=== PATIENT | female | born 1985 ===

== ENCOUNTER 2022-11-24 15:11 | Outpatient (REF) | payer OTHER, SELFPAY ==
[2022-11-25 05:37] LABS: CT PCR NOT DETECTED (Not Detect.); NG PCR NOT DETECTED (Not Detect.)
[2022-11-25 13:56] LABS: BV Int Neg Control Negative (Negative); BV Int Pos Control Positive (Positive)
== END 2022-11-24 15:12 | disposition home or self-care (01) ==
LOC: HO.LNP 15:11
PROVIDERS: PCP Internal Medicine; Visit Provider Advanced Practice Midwife
DX: Z01.419 Encounter for gynecological examination (general) (routine) without abnormal findings (principal); Z97.5 Presence of (intrauterine) contraceptive device; Z20.2 Contact with and (suspected) exposure to infections with a predominantly sexual mode of transmission
CPT/HCPCS: 0353U; 87480; 87510; 87660

== ENCOUNTER 2023-01-04 15:10 | Outpatient (AMB) | payer OTHER, SELFPAY ==
[2023-01-04 15:12] VITALS: BP 104/76; BMI 33.3
--- NOTE | 2023-01-04 15:12 | A.OFFVIS_ITS ---
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 Patient had ParaGard IUD 9 half years ago will be due for another in 06/29. Patient is being satisfied with the ParaGard IUD was no complaints [facility] Surgical History (Updated 01/04/23 @ 15:46 by Dmitriy Fischer MD) H/O abdominoplasty Social History Alcohol intake: current Alcohol intake frequency: holidays/special occasions only Female Reproductive History Menstrual Age of Menarche: 14 Date of last menstrual period: 12/28/22 control method: copper IUCD Date of last pap smear: 10/18/18 (negative) Review of Systems Const All systems reviewed & are unremarkable except as noted in HPI and below Reports as per HPI and Reports no additional complaints GI Reports no additional complaints Reports no additional complaints Physical Exam Vital Signs: Last Vital Signs BP 104/76 01/04/23 15:12 BMI result Body Mass Index 33.3 Assessment & Plan Assessment & Plan (1) Sterilization consult: Code(s): Z30.09 - Encounter for other general counseling and advice on contraception Plan: Discussed with the patient the different options of control including control pills/Nuvaring, DMPA, different types of IUD ?s, sterilization. All the pros, cons, risks and benefits of each were discussed with the patient. The patient decided to think about it and get back to us and would like to seek a 2nd opinion in another OBGYN practice for sterilization consult. Patient was given the phone numbers of multiple OBGYN practice at the [facility] to schedule a 2nd opinion. All questions answered, the patient verbalized understanding Coding Level of Care Code Est Pt Level 3 (57862) Diagnoses Sterilization consult Z30.09
== END 2023-01-04 15:59 | disposition home or self-care (01) ==
LOC: HO.HWS 15:10
PROVIDERS: PCP Internal Medicine; Visit Provider Obstetrics & Gynecology
DX: Z30.09 Encounter for other general counseling and advice on contraception (principal)
CPT/HCPCS: 99213

== ENCOUNTER → 2023-01-04 15:10 | Outpatient (BNVA) | payer OTHER, SELFPAY | PROVIDERS: PCP Internal Medicine; Visit Provider Obstetrics & Gynecology ==

== ENCOUNTER 2023-11-30 09:29 | Outpatient (REF) | payer OTHER, SELFPAY ==
[2023-12-01 06:07] LABS: CT PCR NOT DETECTED (Not Detect.); NG PCR NOT DETECTED (Not Detect.)
[2023-12-01 11:06] LABS: Bacterial Vaginosis PCR POSITIVE (Negative); Candida Group PCR NOT DETECTED (Not Detect); Candida glab krusei PCR NOT DETECTED (Not Detect); Trichomonas vaginalis PCR NOT DETECTED (Not Detect)
[2023-12-05 18:09] LABS: HPV mRNA E6/E7 Not Detected (Not Detected)
== END 2023-11-30 09:30 | disposition home or self-care (01) ==
LOC: HO.LAB 09:29
PROVIDERS: PCP Internal Medicine; Visit Provider Advanced Practice Midwife
DX: Z01.419 Encounter for gynecological examination (general) (routine) without abnormal findings (principal); Z11.51 Encounter for screening for human papillomavirus (HPV); N89.8 Other specified noninflammatory disorders of vagina
CPT/HCPCS: 0352U; 36415; 87491; 87591; 87624; 88175

== ENCOUNTER 2023-11-30 09:29 | Outpatient (AMB) | payer OTHER, SELFPAY ==
[2023-11-30 09:35] VITALS: BP 116/68; BMI 34.4
--- NOTE | 2023-11-30 09:35 | A.OFFVIS_ITS ---
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 Tender Required: No Plasterer Tender Services: Plasterer Tender Present Information Interpreted: clinical only Design Technician: Design Technician Present Allergies No Known Allergies Allergy (Verified 11/30/23 09:38) Medication List - Last Reconciled 11/30/23 by Patti Keller CNM copper (ParaGard T 380A) intrauterine Is last menstrual period known: Yes Last menstrual period: 11/08/23 Do you need a note to return to daycare/school/sports/work: No HPI HPI CALL CENTER SUPPORT CONSULTANT annual exam: Details: 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 Fischer and was going to go for 2nd opinion to [facility] and she never did. At this point she thinks she will just replace the ParaGard IUD as it has she has been being extra careful just in case but I did share with her that it is still works even though it may have . It has not giving her any trouble at all she gets monthly periods they come more like every 5 weeks but she does not exactly keep track other than 1 month it will be the 1st week of the month 2nd month it will be the 2nd week 3rd month will be the 3rd week 4th month 4th week and so on. They last only about 3 days. She has not having any other health problems she has not seen her primary care provider in a while she will be scheduling an appointment she turns 39 in February. 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 [facility] Surgical History H/O abdominoplasty Social History Alcohol intake: current Alcohol intake frequency: holidays/special occasions only Female Reproductive History Menstrual Age of Menarche: 14 Duration of menses: 3-5 days Date of last menstrual period: 11/08/23 control method: copper IUCD Total pregnancies: 3 Full term: 3 Date of last pap smear: 10/18/18 (negative) History of abnormal pap smear: No Physical Exam Vital Signs: Last Vital Signs BP 116/68 11/30/23 09:35 BMI result Body Mass Index 34.4 Const General: healthy appearing, comfortable, no acute distress, well developed and alert Nutritional Appearance: average body habitus Orientation/consciousness: patient oriented x3 Limitations: no limitations HEENT Head: Yes normocephalic Neck Neck: Yes normal visual inspection Chest Chest palpation & inspection: normal inspection of the chest Breast/axilla inspection: normal inspection of the breasts and normal inspection of the axillae Breast/axilla palpation: normal palpation of the breasts and normal palpation of the axillae Resp Effort & Inspection: normal respiratory effort GI Inspection: Yes normal to inspection, No Abdominal wall edema and No distended Palpation (GI): Soft to palpation and nontender Other: External exam within normal limits vagina is pink and moist with very healthy- appearing clear to white mucus cervix appears almost nulliparous pink and smooth with ParaGard string visible very good muscle tone cervix long close thick mobile nontender uterus slightly difficult feel secondary to adipose adnexa nontender not enlarged. General: Yes bladder normal to palpation External Female Exam: normal external appearance and normal appearance of the urethra Speculum Exam - Vagina: normal appearance of the vagina, normal palpation and normal vaginal discharge Speculum Exam - Cervix: normal appearance of the cervix, normal palpation and nontender Bimanual exam- vagina & uterus: normal bimanual exam, normal palpation, uterine size normal, bladder normal to palpation, consistency normal, normal palpation, uterine mobility normal, uterine shape normal, No Cervical tenderness present, non-tender and no cervical motion tenderness Bimanual Exam- Adnexa, other: normal adnexae, no masses, normal and No adnexal tenderness Neuro General: patient oriented x3 Assessment & Plan Assessment & Plan (1) Encounter for routine checking of intrauterine contraceptive device (IUD): Code(s): Z30.431 - Encounter for routine checking of intrauterine contraceptive device Category: Medical (2) Cervical cancer screening: Comment: No history of abnormals; last Pap done October of 2018= neg; next Pap due October of 2023. Code(s): Z12.4 - Encounter for screening for malignant neoplasm of cervix Category: Medical (3) Well woman exam with routine gynecological exam: Code(s): Z01.419 - Encounter for gynecological examination (general) (routine) without abnormal findings Category: Medical (4) control counseling: Comment: Patient has ParaGard that was due for replacement. She had consultations and discussions about sterilization as alternative in 2022. Code(s): Z30.09 - Encounter for other general counseling and advice on contraception Category: Medical (5) Breast cancer screening: Code(s): Z12.39 - Encounter for other screening for malignant neoplasm of breast Category: Medical Plan -----Discussed in this visit the following: healthy balanced diet, regular and consistent exercise, getting recommended health screens, doing the best she can for her particular health concerns, kegel exercises, pap smear screening and followup recommendations, mammography screening and SBE, normal changes in cycles in her life stage--- . Mammogram is being ordered for when she turns 39.. She signed consent for a ParaGard last year in November it is unknown whether not that was ever received and is in the pharmacy at the hospital or not. Patient will sign another form today so it can be ordered if it is not the I did tell her that we would want to replace the IUD when she has her. One of the heaviest days so I asked her to start keeping track so she can plan. Orders: Orders MM tomosynthesis screening BI 3 Months Z01.419 - Encounter for gynecological examination (general) (routine) without abnormal findings, Z12.31 - Encounter for screening mammogram for malignant neoplasm of breast, Z12.39 - Encounter for other screening for malignant neoplasm of breast, Z12.4 - Encounter for screening for malignant neoplasm of cervix, Z30.09 - Encounter for other general counseling and advice on contraception, Z30.431 - Encounter for routine checking of intrauterine contraceptive device Coding Level of Care Code Est Pt Prev Care 18-39y(98547) Diagnoses Encounter for routine checking of intrauterine contraceptive device (IUD) Z30.431 Cervical cancer screening Z12.4 Well woman exam with routine gynecological exam Z01.419 control counseling Z30.09 Breast cancer screening Z12.39
== END 2023-11-30 10:43 | disposition home or self-care (01) ==
LOC: HO.HWSM 09:29
PROVIDERS: PCP Internal Medicine; Visit Provider Advanced Practice Midwife
DX: Z30.431 Encounter for routine checking of intrauterine contraceptive device (principal); Z12.4 Encounter for screening for malignant neoplasm of cervix; Z01.419 Encounter for gynecological examination (general) (routine) without abnormal findings; Z30.09 Encounter for other general counseling and advice on contraception; Z12.39 Encounter for other screening for malignant neoplasm of breast
CPT/HCPCS: 99395

== ENCOUNTER 2024-02-17 20:38 | Emergency (ER) | payer OTHER, SELFPAY ==
[2024-02-17 21:03] VITALS: BP 128/92; PULSE 79; RESP 18; TEMP 36.7; O2SAT 99; BMI 33.9
[2024-02-18 01:54] VITALS: BP 133/85; PULSE 69; RESP 18; TEMP 36.6; O2SAT 99
--- NOTE | 2024-02-18 04:52 | ED_ITS ---
HPI - General Adult General Chief complaint: General Medical Stated complaint: chemical exposure at work, headache Time Seen by Provider: 02/18/24 04:46 Source: patient Mode of arrival: ambulatory Limitations: no limitations History of Present Illness ED Provider: Dr. Erika Guzman HPI narrative: Patient comes to the emergency room complaining of headache. Patient states that earlier today approximately 14 hours ago, patient was exposed to Freon on an air conditioning. Patient states that after she started having headache, she did not take any medications because she did not know she was supposed to. Patient denies any skin irritation, no inhalation injury. No shortness of breath or chest pain. No eye irritation. Related Data Home Medications ?Medication ?Instructions ?Recorded ?Confirmed copper 380 square mm intrauterine intrauterine 11/24/22 11/30/23 device (ParaGard T 380A) Allergies Allergy/AdvReac Type Severity Reaction Status Date / Time No Known Allergies Allergy Verified 02/17/24 21:05 Review of Systems Review of Systems: Constitutional : No Weight loss, No Fever, No Chills, No Night Sweats, No Fatigue, No Malaise ENT/Mouth : No Hearing loss, No Ear Pain, No Nasal Congestion, No Sinus Pain, No Hoarseness, No sore throat, No Rhinorrhea, No Swallowing Difficulty Eyes: No Eye Pain, No Swelling, No Redness, No Foreign Body, No Discharge, No Vision Changes Cardiovascular : No Chest Pain, No SOB, No Dyspnea on Exertion, No Orthopnea, No Edema, No Palpitations Respiratory : No Cough, No Sputum, No Wheezing, No Smoke Exposure, No Dyspnea Gastrointestinal : No Nausea, No Vomiting, No Diarrhea, No Constipation, No abdominal Pain, No Hematochezia, No Melena Genitourinary : no irregular bleeding, No Dysuria, No Urinary Frequency, No Hematuria, No Urinary Incontinence, No Urgency, No Flank Pain, No Urinary Flow Changes, No Hesitancy Musculoskeletal : No joint pain, No Myalgias, No Joint Swelling Skin : No Skin Lesions, No rash Neuro : No Weakness, No Numbness, No Paresthesias, No Loss of Consciousness, No Dizziness, complaining of mild Headache Psych : No Anxiety/Panic, No Depression, No SI/HI/AH/VH, No Social Issues, Heme/Lymph: No Bruising, No Bleeding,No Lymphadenopathy Endocrine : No Polyuria, No Polydipsia, No Temperature Intolerance PMFSH Past Medical History Surgical History H/O abdominoplasty Social History Social History Alcohol intake: current Alcohol intake frequency: holidays/special occasions only Advance Directives: No Advance Directives Information Provided: Yes Physical Exam ED Vital Signs: Vital Signs - 24 hr 02/17/24 21:03 02/18/24 01:54 Temperature 98.1 F 97.9 F Pulse Rate 79 69 Respiratory Rate 18 18 Blood Pressure 128/92 H 133/85 Pulse Oximetry 99 99 Oxygen Delivery Method Room Air Room Air BMI result Body Mass Index 33.9 Const Other: Appearance: Alert. Oriented X3. No acute distress. Eyes: Pupils equal, round and reactive to light. ENT: Pharynx normal. Neck: Normal inspection. Neck supple. No lymph nodes noted. No crepitus CVS: Normal heart rate and rhythm. Pulses normal. Normal S1 and S2 Respiratory: No respiratory distress. Breath sounds normal. No Wheezing. No rales Abdomen: Soft and nontender. No rigidity. No distention. Skin: Skin warm and dry. Normal skin color. Normal skin turgor. Extremities: No lower extremity edema. No Lacerations. No Rash Neuro: Oriented X 3. No motor deficit. No sensory deficit. Moving all extremities. No slurred speech. CN 2 through 12 grossly intact Psych: calm, cooperative, normal affect Medical Decision Making Medical Decision Making MDM Narrative: Patient was given p.o. Tylenol/ibuprofen Discharge Plan Discharge Clinical Impression: Headache Patient Disposition: Home, Self-Care Instructions: Acute Headache (ED) Additional Instructions: Please follow-up with your primary care physician tomorrow. If you have any worsening or new symptoms, please return to the emergency room or call 911 Prescriptions: No Action ParaGard T 380A 380 square mm intrauterine device intrauterine Print Language: Upper Sorbian
[2024-02-18] MEDS: Ibuprofen 600 MG TABLET PO (05:32)
[2024-02-18 05:33] VITALS: BP 129/86; PULSE 74; RESP 20; TEMP 36.1; O2SAT 99
[2024-02-18 05:35] VITALS: BP 129/86; PULSE 74; RESP 20; TEMP 36.1; O2SAT 99
== END 2024-02-18 05:36 | disposition home or self-care (01) ==
PROVIDERS: Emergency Provider Emergency Medicine
DX: R51.9 Headache, unspecified (principal)
CPT/HCPCS: 99283

== ENCOUNTER 2024-02-22 08:08 | Outpatient (REF) | payer BC, SELFPAY ==
--- NOTE | ~2024-02-22 | MM_ITS ---
EXAMINATION: MM SCREENING DIGITAL BREAST TOMOSYNTHESIS, BILATERAL CLINICAL INFORMATION: Screening. Asymptomatic. COMPARISON: Mammography: Baseline. TECHNIQUE: Digital breast mammography with tomosynthesis is performed in both the craniocaudal and mediolateral oblique views along with computer-aided detection (CAD). FINDINGS: There are scattered areas of fibroglandular density (ACR BI-RADS breast composition Category b). There are no significant masses, abnormal calcifications, or other abnormalities. MM/MM tomosynthesis screening BI IMPRESSION: No mammographic evidence of malignancy. ASSESSMENT: BI-RADS BI-RADS 1 - Negative RECOMMENDATION: Routine annual mammography screening. 1 year F/U This examination should not preclude the clinical evaluation of a suspicious palpable abnormality. This patient's information was entered into a reminder system with a target due date for their next mammogram. Electronically signed by: Evelyn Nevarez DO 03/06/2024 04:21 PM EDT
== END 2024-02-22 08:09 | disposition home or self-care (01) ==
LOC: HO.MAMMO 08:08
PROVIDERS: Visit Provider Advanced Practice Midwife
DX: Z12.31 Encounter for screening mammogram for malignant neoplasm of breast (principal)
CPT/HCPCS: 77063; 77067

== ENCOUNTER → 2024-02-22 08:15 | Outpatient (BNV) | payer BC, SELFPAY | PROVIDERS: Visit Provider Internal Medicine | DX: Z12.31 Encounter for screening mammogram for malignant neoplasm of breast (principal) | CPT/HCPCS: 77063; 77067 ==